=== PATIENT | female | born 1990 | race Caucasian/White ===

== ENCOUNTER 2016-10-01 19:35 | Emergency (ER) | payer SELFPAY ==
[~2016-10-01] VITALS: Ht 160 cm; Wt 112.0 kg
[~2016-10-01 19:35] MED LIST: AMOX500T PO; Z.0.NO CURRENT MEDS
[2016-10-01 19:46] VITALS: BP 122/82; PULSE 84; RESP 18; TEMP 98.6; O2SAT 97
[2016-10-01 20:55] VITALS: BP 124/84; PULSE 84; RESP 16; O2SAT 98
--- NOTE | 2016-10-01 21:03 | PD ---
HPI . left index finger laceration Chief Complaint: Laceration/Skin Injury Time Seen by Provider: 21:03 Travel History International Travel<30 days: No Contact w/Intl Traveler<30days: No Traveled to known affect area: No History of Present Illness HPI 25-year-old female here with a left index finger laceration on the distal fat pad. Patient was cutting a package open with a bread knife. She actually cut her finger. She has about a 1.570 to laceration to her left index finger on the distal fat pad. At time of examination bleeding is controlled. She has full range of motion in her hands and digits. She is unaware of her last tetanus. She is right-hand dominant. She does work at [employer] and is concerned about this digit and she is to return to work tomorrow. PFSH Past Medical History Medical History: Denies Significant Hx Diminished Hearing: No Tetanus Vaccination: > 5 Years Influenza Vaccination: No ?: Not LMP: "1 WEEK AGO" : 0 Para: 0 Past Surgical History Surgical History: No Previous Surgery Social History Alcohol Use: Yes Tobacco Use: Yes (07/25 PPD) Substance Use: No Allergies-Medications (Allergen,Severity, Reaction): Coded Allergies: No Known Allergies (Verified , 10/01/16) Reported Meds & Prescriptions Reported Meds & Active Scripts Active Ibuprofen 800 Mg Tab 800 Mg PO TID Review of Systems General / Constitutional: No: Fever Eyes: No: Visual changes HENT: No: Headaches Cardiovascular: No: Chest Pain or Discomfort Respiratory: No: Shortness of Breath Gastrointestinal: No: Abdominal Pain Genitourinary: No: Dysuria Musculoskeletal: No: Pain Skin: Positive Other (left index finger laceration), No Rash Neurologic: No: Weakness Psychiatric: No: Depression Endocrine: No: Polydipsia Hematologic/Lymphatic: No: Easy Bruising Physical Exam Narrative GENERAL: AAO x 3, no acute distress, Well-nourished, well-developed patient. SKIN: Warm and dry. No visible rashes or bruising. small 1.6 cm laceration on the distal fat pad of left index finger. no tendon, bone or vascular injury HEAD: Normocephalic and atraumatic. EYES: No scleral icterus. No injection or drainage. ENT: No nasal drainage noted. Mucous membranes pink. Airway patent. NECK: Supple, trachea midline. No JVD. CARDIOVASCULAR: Regular rate and rhythm without murmurs, gallops, or rubs. RESPIRATORY: Breath sounds equal bilaterally. No accessory muscle use. No rhonchi or rales. GASTROINTESTINAL: Abdomen soft, non-tender, nondistended. EXTREMITIES: No cyanosis or edema. all joints full ROM BACK: Nontender without obvious deformity. No CVA tenderness. PSYCH: AAO x 3, normal affect. Data Data Last Documented VS Vital Signs Date Time Temp Pulse Resp B/P Pulse Ox O2 Delivery O2 Flow Rate FiO2 10/01/16 20:55 84 16 124/84 98 10/01/16 19:46 98.6 Room Air Orders Lidocaine 1% Inj (50 Ml) (Xylocaine 1% I (10/01/16 21:15) Tetanus/Diphtheria Tox Adult (Tetanus/Di (10/01/16 21:15) MDM Medical Decision Making Medical Screen Exam Complete: Yes Emergency Medical Condition: Yes Medical Record Reviewed: Yes Differential Diagnosis finger laceration, abrasion, less likely cellulitis or fracture. Narrative Course 25-year-old female here with a left index finger laceration on the distal fat pad. Patient was cutting a package open with a bread knife. She actually cut her finger. She has about a 1.570 to laceration to her left index finger on the distal fat pad. At time of examination bleeding is controlled. She has full range of motion in her hands and digits. She is unaware of her last tetanus. She is right-hand dominant. She does work at [employer] and is concerned about this digit and she is to return to work tomorrow. Patient seen and examined. There is a small laceration on distal left index finger. It measures 1.6 cm Laceration repaired with 5 sutures. She tolerated without incident I am concerned about wound dehiscence as patient has to work and uses this hand frequently. I had a discussion with her regarding this. Discussed signs of infection. Recommend removal in 7-10 days. Wound check in 3-5 days. Tetanus administered without incident. No and antibiotics needed. Recommend daily dressing changes and keeping covered while at work. Patient verbalized understanding of instructions, questions were answered, and thanked me for their care. I advised them if their condition worsens, please return to the nearest emergency room for further care. Procedures Procedure Narrative LACERATION LOCATION: Distal left index finger fat pad LENGTH: 1.6 cm NUMBER OF STITCHES/SILVANO: 5 REPAIR: The area of the laceration was prepped with Betadine and sterilely draped. The laceration was infiltrated with 1% lidocaine digital block The wound was copiously irrigated and explored without evidence of foreign body, tendon injury or neurovascular injury. The wound was closed using 4-0 Ethilon. This was a single layer repair. A sterile dressing was applied. The patient was advised to keep the dressing clean and dry. Patient tolerated the procedure well. Diagnosis Primary Impression: Laceration of index finger Qualified Code: S61.218A - Laceration of index finger, initial encounter Patient Instructions: Acute Wound Care (ED), Finger Laceration (ED), General Instructions Departure Forms: Tests/Procedures, Work Release Enter return to work date: Oct 03, 2016 Additional Instructions: Please return to emergency department if your symptoms return or worsen. Follow up with your primary care provider. Take medications as prescribed. Keep area clean and free of excessive moisture. Moisture can hinder healing and cause skin to break apart. [place] for worsening signs of infection which include increased redness, increased warmth, purulent drainage, increased swelling or streaking. Perform daily dressing changes. Clean this area with soap and water. You received a tetanus shot today. You may experience tenderness at the injection site. This is normal. As we discussed you will need to be careful using this finger excessively while at work. Over usage can result in the wound not healing properly and . Return to emergency department in 3-5 days for a wound check. Med/Other Pt SpecificInfo: Prescription(s) given Scripts Ibuprofen 800 Mg [id number] Mg PO TID #20 TAB Ref 0 Prov:RashidKourtney 10/01/16 Disposition: 01 DISCHARGE HOME Condition: Stable Barbara Montague Oct 01, 2016 21:03
[2016-10-01] MEDS ORDERED: LIDOCAINE HCL 1% 50 ML VIAL INFIL ONE (21:15)
[2016-10-01] MEDS ORDERED: TETANUS/DIPHTHERIA TOXOID ADULT 0.5 ML VIAL IM ONE (21:15)
[2016-10-01] MEDS ORDERED: CIPR0.3S2 LEFT EYE (21:17)
[2016-10-01] MEDS ORDERED: IBUP800T23 PO (21:17)
== END 2016-10-01 22:25 | disposition home or self-care (01) ==
LOC: PHED 19:35 → PHEFT 22:25
DX: S61.211A Laceration without foreign body of left index finger without damage to nail, initial encounter (principal)
CPT/HCPCS: 12001; 90471; 90714

== ENCOUNTER 2017-07-05 19:32 | Emergency (ER) | payer SELFPAY ==
[~2017-07-05] VITALS: Ht 160 cm; Wt 115.5 kg
[~2017-07-05 19:32] MED LIST changes: -AMOX500T PO; +IBUP1TAB7 PO; -Z.0.NO CURRENT MEDS
[2017-07-05 19:38] VITALS: BP 140/85; PULSE 86; RESP 18; TEMP 98.4; O2SAT 97
--- NOTE | 2017-07-05 20:01 | PD ---
HPI Chief Complaint: Oral / Dental Pain or Problem Time Seen by Provider: 19:48 Travel History International Travel<30 days: No Contact w/Intl Traveler<30days: No Traveled to known affect area: No History of Present Illness HPI Patient comes in complaining of left lower dental pain from a broken tooth ongoing intermittently over the past month. Patient states it got worse for the past 2 days and is now constant. Patient describes pain is throbbing aching pain radiates throughout the side of her face and into her ear. Patient has been taking ibuprofen that helped some. Cold makes the pain worse. Patient states she has not seen a dentist for this yet. Denies any fevers, nausea, vomiting, difficulty swallowing, or . PFSH Past Medical History Medical History: Denies Significant Hx Diminished Hearing: No Tetanus Vaccination: < 5 Years Influenza Vaccination: No ?: Not LMP: 07/04/17 : 0 Para: 0 Past Surgical History Surgical History: No Previous Surgery Social History Alcohol Use: Yes Tobacco Use: Yes (1/2ppd) Substance Use: No Allergies-Medications (Allergen,Severity, Reaction): Coded Allergies: No Known Allergies (Verified , 10/01/16) Reported Meds & Prescriptions Reported Meds & Active Scripts Active Naprosyn (Naproxen) 500 Mg Tab 500 Mg PO Q12HR PRN Clindamycin (Clindamycin HCl) 150 Mg Cap 2 Cap PO Q6H 10 Days Amoxicillin 875 Mg Tab 875 Mg PO BID 10 Days Ibuprofen 800 Mg Tab 800 Mg PO TID Review of Systems Except as stated in HPI: all other systems reviewed are Neg Physical Exam Narrative GENERAL: Well-developed, overly nourished, in no acute distress, and non-ill appearing. SKIN: Focused skin assessment warm and dry. HEAD: Atraumatic. Normocephalic. EYES: Pupils equal and round. EOMI. No scleral icterus. No injection or drainage. ENT: No nasal bleeding or discharge. Mucous membranes pink and moist. Dental cavity noted. There is no visible or palpable abscess. Floor the mouth, submandibular, submental are all soft to palpation. Uvula is midline. NECK: Trachea midline. No cervical lymphadenopathy. Supple. No nuclear rigidity. RESPIRATORY: No accessory muscle use. No respiratory distress. MUSCULOSKELETAL: No obvious deformities. No clubbing. No cyanosis. No edema. Full range of motion. NEUROLOGICAL: Awake and alert. No obvious cranial nerve deficits. Motor grossly within normal limits. Normal speech. PSYCHIATRIC: Appropriate mood and affect; insight and judgment normal. Data Data Last Documented VS Vital Signs Date Time Temp Pulse Resp B/P (MAP) Pulse Ox O2 Delivery O2 Flow Rate FiO2 07/05/17 19:38 98.4 86 18 140/85 (103) 97 Orders Orders Ed Discharge Order (07/05/17 20:03) MDM Medical Decision Making Medical Screen Exam Complete: Yes Emergency Medical Condition: Yes Differential Diagnosis Dental abscess, dental infection, dentalgia Narrative Course Patient requesting amoxicillin from [facility] as is free. I explained patient was not the best medication for this. Patient requesting a prescription for both amoxicillin and clindamycin. States will get the clindamycin if it is not too expensive otherwise she will try the amoxicillin for this first. The patient presented with dental pain. There is no fever. There is no significant facial swelling or evidence of cellulitis. There is poor dentition but no evidence of drainable abscess at this time. There is no evidence of significant deep or invading abscess at this time. The patient will be placed on antibiotics and pain medication. The patient was instructed to follow up with a dentist. The patient was given the dental referral sheet. Warnings were discussed with the patient regarding worsening of infection. The patient is to return if pain worsens, develops progressive swelling or facial redness or fever. The patient agrees with plan. Patient in no obvious distress upon re-evaluation. Patient was asked if they wanted to speak to my attending, which the patient did not wish to do at this time. Any questions/concerns in reference to patient diagnosis/condition discussed and clarified prior to patient's discharge. Reinforced sheer importance of close follow up with patient's primary physician or primary care clinic and/or dentist. Instructed patient to return to ED immediately, if symptoms return/worsen. Patient showed understanding of above instructions. Further instructions and recommendations were detailed in discharge paperwork. Patient ambulated without difficulty out of ED at discharge. Diagnosis Primary Impression: Infected dental caries Referrals: [facility] Patient Instructions: Dental Abscess (GEN), Dental Caries (DC), General Instructions Additional Instructions: Follow-up with your primary care physician and dentist as soon as possible. Rinse mouth with warm salt water gargles. Take all medication as prescribed. Return to the emergency department if symptoms get worse. Med/Other Pt SpecificInfo: Prescription(s) given Scripts Naproxen (Naprosyn) 500 Mg Tab 500 MG PO Q12HR Y for PAIN SCALE 1 TO 10, #14 TAB 0 Refills Prov: Erasto Cameron MD 07/05/17 Clindamycin (Clindamycin) 150 Mg Cap 2 CAP PO Q6H for Infection for 10 Days, #80 CAP 0 Refills Prov: Erasto Cameron MD 07/05/17 Amoxicillin (Amoxicillin) 875 Mg Tab 875 MG PO BID for Infection for 10 Days, #20 TAB 0 Refills Prov: Erasto Cameron MD 07/05/17 Disposition: 01 DISCHARGE HOME Condition: Stable Jonathan Segovia Jul 05, 2017 20:01
[2017-07-05] MEDS ORDERED: CLIN150C14 PO (20:02)
[2017-07-05] MEDS ORDERED: AMOX875T PO (20:02)
[2017-07-05] MEDS ORDERED: NAPR500 PO (20:02)
== END 2017-07-05 20:12 | disposition home or self-care (01) ==
LOC: PHEFT 19:32
DX: K02.9 Dental caries, unspecified (principal); K04.7 Periapical abscess without sinus; F17.210 Nicotine dependence, cigarettes, uncomplicated
CPT/HCPCS: 99284

== ENCOUNTER 2017-12-03 12:41 | Emergency (ER) | payer SELFPAY ==
[~2017-12-03 12:41] MED LIST changes: +AMOX875T PO; +CLIN150C14 PO; +NAPR500 PO
[2017-12-03 12:43] VITALS: BP 129/81; PULSE 100; RESP 20; TEMP 100.3; O2SAT 97
--- NOTE | 2017-12-03 13:28 | PD ---
HPI Chief Complaint: Cold / Flu Symptoms Time Seen by Provider: 12:57 Travel History International Travel<30 days: No Contact w/Intl Traveler<30days: No Traveled to known affect area: No History of Present Illness HPI 27-year-old female presents emergency department for evaluation of sore throat, difficulty swallowing, fever that started yesterday. Patient states that started having anterior neck pain as well. Admits to having a sick contact with strep pharyngitis which was from her sister's daughter. Denies cough, congestion, runny nose. Denies chest pain or shortness of breath. Denies nausea, vomiting or diarrhea. Patient last took Tylenol about 10:00 this morning. PFSH Past Medical History Medical History: Denies Significant Hx Diminished Hearing: No Tetanus Vaccination: < 5 Years Influenza Vaccination: No ?: Not LMP: 11/23/17 : 0 Para: 0 Past Surgical History Surgical History: No Previous Surgery Social History Alcohol Use: Yes Tobacco Use: Yes (1/2ppd) Substance Use: No Allergies-Medications (Allergen,Severity, Reaction): Coded Allergies: No Known Allergies (Verified Adverse Reaction, Unknown, 12/03/17) Reported Meds & Prescriptions Reported Meds & Active Scripts Active Amoxicillin 875 Mg Tab 875 Mg PO BID 7 Days Naprosyn (Naproxen) 500 Mg Tab 500 Mg PO Q12HR PRN Clindamycin (Clindamycin HCl) 150 Mg Cap 2 Cap PO Q6H 10 Days Amoxicillin 875 Mg Tab 875 Mg PO BID 10 Days Ibuprofen 800 Mg Tab 800 Mg PO TID Review of Systems Except as stated in HPI: all other systems reviewed are Neg Physical Exam Narrative GENERAL: Well-nourished, well-developed patient. SKIN: Focused skin assessment warm/dry. HEAD: Normocephalic. EYES: No scleral icterus. No injection or drainage. NECK: Supple, trachea midline. No JVD. Mild anterior cervical lymphadenopathy. No meningismus THROAT: Mild pharyngeal injection. Questionable exudates. No tonsillar hypertrophy. Airway is patent. CARDIOVASCULAR: Regular rate and rhythm without murmurs, gallops, or rubs. RESPIRATORY: Breath sounds equal bilaterally. No accessory muscle use. No CVA tenderness MUSCULOSKELETAL: No cyanosis, or edema. BACK: Nontender without obvious deformity. No CVA tenderness. Data Data Last Documented VS Vital Signs Date Time Temp Pulse Resp B/P (MAP) Pulse Ox O2 Delivery O2 Flow Rate FiO2 12/03/17 12:43 100.3 100 20 129/81 (97) 97 Orders Orders Influenzae A/B Antigen (12/03/17 12:57) Ibuprofen (Motrin) (12/03/17 13:30) Ed Discharge Order (12/03/17 14:27) MDM Medical Decision Making Medical Screen Exam Complete: Yes Emergency Medical Condition: Yes Differential Diagnosis Strep pharyngitis, upper respiratory infection, allergic pharyngitis, influenza Narrative Course 27-year-old female presents emergency department for evaluation of sore throat, difficulty swallowing, fever that started yesterday. Patient states that started having anterior neck pain as well. Admits to having a sick contact with strep pharyngitis which was from her sister's daughter. Denies cough, congestion, runny nose. Denies chest pain or shortness of breath. Denies nausea, vomiting or diarrhea. Patient last took Tylenol about 10:00 this morning. Vital signs demonstrate temperature of 100.3, heart rate 100, blood pressure stable. Motrin administered in the emergency department for body aches and fever. Influenza ordered as there has been some increase incidence of influenza in the general population. If this is negative, will treat for strep pharyngitis as patient has had contact and central criteria met. We will treat patient for strep pharyngitis. Amoxicillin twice daily. Advised follow-up with primary care physician. Tylenol Motrin per package instructions for body aches and fevers. Diagnosis Primary Impression: Strep pharyngitis Referrals: Primary Care Physician Additional Instructions: You may alternate tylenol and motrin for fever, per package instructions. Use cooling techniques such as placing cool rags in the armpits or legs to reduce fever. Take all medications as prescribed. Follow up with your primary physician within 2-3 days. Return to the emergency department for worsening or uncontrolled fever. Scripts Amoxicillin (Amoxicillin) 875 Mg Tab 875 MG PO BID for Infection for 7 Days, #14 TAB 0 Refills Prov: Branden Rodríguez MD 12/03/17 Disposition: 01 DISCHARGE HOME Condition: Stable Lovely Burciaga December 03, 2017 13:28
[2017-12-03] MEDS ORDERED: IBUPROFEN 600 MG TAB PO ONE (13:30)
[2017-12-03] MEDS ORDERED: AMOX875T PO (14:27)
== END 2017-12-03 14:56 | disposition home or self-care (01) ==
LOC: PHEFT 12:41
DX: J02.0 Streptococcal pharyngitis (principal); F17.200 Nicotine dependence, unspecified, uncomplicated
CPT/HCPCS: 87804; 99283